=== PATIENT | male | born 1970 | race Caucasian/White ===

== ENCOUNTER → 2016-11-29 | Outpatient (CLI) | payer MEDICAID ==
[~2016-11-29] MED LIST: ABILIFY2 MG PO; CLONIDINE 0.2M0.2 MG PO; EFFIENT10 M2 PO; ELAVIL GENERIC10 MG PO; GABAPENTIN 600600 MG PO; GLIMEPIRIDE 2MG2 MG PO; HYDROXYZINE 25M25 MG PO; KEFLEX 500MG.500 MG PO; LIPITOR40 MG PO; LISINOPRIL 5MG T5 MG PO; METFORMIN1000 MG PO; NORVASC 10MG. T10 MG PO; OXAZEPAM10 MG PO; OXYCODONE HYDRO10 M2 PO; PERCOGESIC EXTR1 TAB PO; TRAZODONE150 MG PO; TRICOR 145 MG145 MG PO; ZOLOFT100 MG PO
[2016-11-29 16:41] LABS: AMPHETAMINES/METAMPHETAMINES NEGATIVE ng/mL (<1000)
[2016-12-11 14:39] LABS: Opiates Negative (Cutoff=100)
== END ==
LOC: LAB 15:38
PROVIDERS: Emergency Medicine
DX: Z79.899 Other long term (current) drug therapy (principal)

== ENCOUNTER → 2016-12-25 | Outpatient (CLI) | payer MEDICAID ==
[2016-12-25 21:05] LABS: AMPHETAMINES/METAMPHETAMINES NEGATIVE ng/mL (<1000)
== END ==
LOC: LAB 12:12
PROVIDERS: Emergency Medicine
DX: E11.9 Type 2 diabetes mellitus without complications (principal); Z79.899 Other long term (current) drug therapy

== ENCOUNTER → 2017-01-02 | Outpatient (CLI) | payer MEDICAID ==
--- NOTE | 2017-01-02 12:55 | RADIOLOGY REPORT PS360 ---
CHEST(2 VIEWS-NOT PORTABLE) HISTORY: Left-sided chest pain COUGH ORDERING PHYSICIAN: Baltazar Macdonald MD PATIENT AGE: 46 years COMPARISON: None available FINDINGS: The cardiomediastinal silhouette and pulmonary vascularity are within normal limits. Coronary artery stent is present on the left The lungs are clear without infiltrates, suspicious nodules, or pleural effusions. No acute bony abnormalities. Old granulomatous disease with calcified granuloma in the right lung base IMPRESSION: No change with no acute finding, old granulomatous disease
== END ==
LOC: RAD 10:39
DX: J40 Bronchitis, not specified as acute or chronic (principal)